=== PATIENT | female | born 1975 | race Caucasian/White ===

== ENCOUNTER → 2016-07-03 | Outpatient (REF) | payer BC | LOC: M LAB REF 13:19 | PROVIDERS: ATTEND Advanced Practice Midwife | DX: Z12.4 Encounter for screening for malignant neoplasm of cervix (principal) ==

== ENCOUNTER → 2017-02-05 | Outpatient (CLI) | payer BC ==
--- NOTE | 2017-02-05 14:17 | REP ---
DIAGNOSTIC MAMMOGRAM RIGHT BREAST WITH RIGHT BREAST ULTRASOUND: Multiple magnification compression views of the right breast are performed and correlated with the recent baseline mammogram of 01/22/2017. Posterolaterally in the right breast is a lobulated smoothly marginated low density nodule measuring about 1 cm in diameter. It appears to have a lucent notch most consistent with a lymph node. It contains three coarse benign appearing calcifications. Real-time sonographic evaluation of the posterolateral right breast fails to reveal any cystic or solid nodule. IMPRESSION: ACR 3 probably benign. In the posterolateral right breast near the axilla is an oval 1 cm nodule having a mammographic appearance most consistent with a lymph node. This contains three benign appearing coarse calcifications. This is probably benign. It could not be seen sonographically. Recommend 6 month followup mammogram of the right breast to ensure stability. BI-RADS/ACR category 3 mammogram. Probably benign findings. Initial short-term followup (usually 6 month) examination. This mammogram was interpreted with the aid of an FDA-approved computer-aided detection system. The patient letter being requested is M3. Signed by Dakotah Benítez MD 02/05/2017 04:20 P
== END ==
LOC: M RAD 12:15
PROVIDERS: ATTEND Advanced Practice Midwife
DX: R92.1 Mammographic calcification found on diagnostic imaging of breast (principal)

== ENCOUNTER → 2019-10-29 | Outpatient (REF) | payer BC | LOC: M SFHCWAGY 10:27 | PROVIDERS: ATTEND Advanced Practice Midwife | DX: Z12.4 Encounter for screening for malignant neoplasm of cervix (principal) | CPT/HCPCS: 87624; G0123 ==

== ENCOUNTER → 2021-01-03 | Outpatient (CLI) | payer BC | LOC: M WHC 13:50 | PROVIDERS: ATTEND Obstetrics & Gynecology | DX: Z12.31 Encounter for screening mammogram for malignant neoplasm of breast (principal) ==

== ENCOUNTER → 2021-01-03 | Outpatient (REF) | payer BC | LOC: M SFHCWAGY 17:56 | PROVIDERS: ATTEND Obstetrics & Gynecology | DX: Z12.4 Encounter for screening for malignant neoplasm of cervix (principal) | CPT/HCPCS: 87624; G0123 ==

== ENCOUNTER → 2022-01-25 | Outpatient (REF) | payer BC | LOC: M SFHCWAGY 16:55 | PROVIDERS: ATTEND Obstetrics & Gynecology | DX: Z01.419 Encounter for gynecological examination (general) (routine) without abnormal findings (principal); Z12.4 Encounter for screening for malignant neoplasm of cervix; Z77.9 Other contact with and (suspected) exposures hazardous to health ==

== ENCOUNTER → 2023-02-05 | Outpatient (REF) | payer BC | LOC: M SFHCWAGY 13:33 | PROVIDERS: ATTEND Obstetrics & Gynecology | DX: Z01.419 Encounter for gynecological examination (general) (routine) without abnormal findings (principal); Z77.9 Other contact with and (suspected) exposures hazardous to health; Z12.4 Encounter for screening for malignant neoplasm of cervix ==

== ENCOUNTER → 2023-12-24 | Outpatient (REF) | payer BC | LOC: M PLALAB 08:19 | PROVIDERS: ATTEND Obstetrics & Gynecology | DX: Z12.4 Encounter for screening for malignant neoplasm of cervix (principal) | CPT/HCPCS: 87624; G0123 ==

== ENCOUNTER → 2025-01-16 | Outpatient (REF) | payer BC ==
[2025-01-20 15:59] LABS: HPV APTIMA Not Detected (Not Detected)
== END ==
LOC: M SFHCWAGY 15:13
PROVIDERS: ATTEND Obstetrics & Gynecology
DX: Z01.419 Encounter for gynecological examination (general) (routine) without abnormal findings (principal); R87.610 Atypical squamous cells of undetermined significance on cytologic smear of cervix (ASC-US); Z80.41 Family history of malignant neoplasm of ovary; Z80.49 Family history of malignant neoplasm of other genital organs; Z80.0 Family history of malignant neoplasm of digestive organs; Z12.31 Encounter for screening mammogram for malignant neoplasm of breast; Z11.51 Encounter for screening for human papillomavirus (HPV)
CPT/HCPCS: 87624; G0123